=== PATIENT | male | born 1990 | race Asian ===

== ENCOUNTER 2016-10-13 04:03 | Emergency (ER) | payer MEDICAID ==
[~2016-10-13] VITALS: Ht 172.7 cm; Wt 91.6 kg
[2016-10-13 04:34] VITALS: BP 127/77
[2016-10-13] MEDS ORDERED: LORA1TAB37 PO (04:48)
[2016-10-13] MEDS ORDERED: FLUT9.9S NS (04:48)
[2016-10-13] MEDS ORDERED: DEXAMETHASONE SOD PHOS 4 MG/ML VIAL PO ONE (05:00)
--- NOTE | 2016-10-13 05:08 | ED.ADGEN ---
Past Medical History Past Medical History: No Pertinent History Past Surgical History: No Surgical History Alcohol Use: None Drug Use: None Adult General Chief Complaint Chief Complaint: EYE PROBLEMS HPI HPI Patient is a 25 year old man, with no significant past medical history, who presents to the emergency department with a complaint of itching around the eyes , clear rhinorrhea, with nasal congestion, that began last week. Patient moved from [place] to [place] at the end of August, he has experienced previously, with itchy around the eyes and the rhinorrhea, although he denies any history of allergies. Denies any specific triggers. No fevers, no chills, no weakness numbness or tingling. No shortness of breath, chest pain, throat or mouth symptoms. Review of Systems Review of Systems Constitutional: Denies fever or chills. [] Eyes: Denies change in visual acuity. [] "Itching" around the eyes, associated with rhinorrhea and mild sore throat. HENT: Denies nasal congestion or sore throat. [] Respiratory: Denies cough or shortness of breath. [] Cardiovascular: Denies chest pain or edema. [] GI: Denies abdominal pain, nausea, vomiting, bloody stools or diarrhea. [] : Denies dysuria. [] Musculoskeletal: Denies back pain or joint pain. [] Integument: Denies rash. [] Neurologic: Denies headache, focal weakness or sensory changes. [] Endocrine: Denies polyuria or polydipsia. [] Lymphatic: Denies swollen glands. [] Psychiatric: Denies depression or anxiety. [] Current Medications Current Medications Current Medications Medications (Trade) Dose Ordered Sig/Yary Start Time Stop Time Status Last Admin Dose Admin Dexamethasone Sodium Phosphate (Decadron) 6 mg 1X ONCE 10/13/16 05:00 10/13/16 05:00 DC 10/13/16 04:48 6 MG Allergies Allergies Allergies Coded Allergies Type Severity Reaction Last Updated Verified No Known Drug Allergies 10/13/16 No Physical Exam Physical Exam Constitutional: Well developed, well nourished, no acute distress, non-toxic appearance. [] HENT: Normocephalic, atraumatic, bilateral external ears normal, oropharynx moist, no oral exudates. Turbinates swelling bilaterally, clear rhinorrhea, postnasal drip. [] Eyes: PERRLA, EOMI, conjunctiva mildly injected, painless eye motion, patient with dried skin and mild erythema surrounding the upper and lower lids, no evidence of orbital or periorbital cellulitis, no discharge. [] Neck: Normal range of motion, no tenderness, supple, no stridor. [] Cardiovascular:Heart rate regular rhythm, no murmur, S1, S2, rubs or gallops. [] Lungs & Thorax: Bilateral breath sounds clear to auscultation, no wheezing, rhonchi, rales. No chest wall tenderness or crepitus. [] Abdomen: Bowel sounds normal, soft, no tenderness, no masses, no pulsatile masses. [] Skin: Warm, dry, no erythema, no rash. [] Back: No tenderness, no CVA tenderness. [] Extremities: No tenderness, no cyanosis, no clubbing, ROM intact, no edema. [] Neurologic: Alert and oriented X 3, normal motor function, normal sensory function, no focal deficits noted. [] Psychologic: Affect normal, judgement normal, mood normal. [] Current Patient Data Vital Signs Vital Signs Date Time Temp Pulse Resp B/P Pulse Ox O2 Delivery O2 Flow Rate FiO2 10/13/16 04:34 97.6 79 20 99 Room Air 97.6 EKG EKG Not indicated. [] Radiology/Procedures Radiology/Procedures Not indicated. [] Course & Med Decision Making Course & Med Decision Making Pertinent Labs and Imaging studies reviewed. (See chart for details) Patient well-appearing, aside from evidence of allergic conjunctivitis, and rhinitis, with eczema surrounding the eyes consistent with additional allergic symptoms. No evidence of airspace disease or throat or mucus membrane involvement. Patient has not been using any allergy type medications, received Decadron 6 mg orally in the emergency department without issue, will be initiated on loratadine 10 mg, one pill by mouth once daily to begin tonight, and Flonase to be used once daily. We did discuss concerning symptoms that prompt return, patient voiced understanding and agreement, discharged home in stable condition with plan as above, also given a list of available primary care providers. Dragon Disclaimer Dragon Disclaimer This electronic medical record was generated, in whole or in part, using a voice recognition dictation system. Departure Impression: Primary Impression: Allergic Disposition: HOME, SELF-CARE Condition: IMPROVED Scripts Loratadine/Pseudoephedrine (Loratadine-D 24HR Tablet)1 Each Tab.er.24h1 Each PO HS PRN ALLERGIES #20 Prov:ADILENE SAGASTUME DO 10/13/16 Fluticasone Propionate (Flonase Allergy Relief)9.9 Ml [place].susp2 Sprays NS DAILY PRN CONGESTION #1 BOTTLE Prov:ADILENE SAGASTUME DO 10/13/16 Problem Qualifiers Primary Impression: Allergic Encounter type: initial encounter Qualified Code: T78.40XA - Allergy, unspecified, initial encounter ADILENE SAGASTUME DO Oct 13, 2016 05:08
== END 2016-10-13 05:00 | disposition home or self-care (01) ==
LOC: ER 04:03
DX: T78.40XA Allergy, unspecified, initial encounter (principal); X58.XXXA Exposure to other specified factors, initial encounter
CPT/HCPCS: 99283; J1100

== ENCOUNTER 2020-05-25 20:53 | Emergency (ER) | payer SELFPAY ==
[~2020-05-25] VITALS: Ht 172.7 cm; Wt 83.0 kg
[~2020-05-25 20:53] MED LIST: FLUT9.9S NS; LORA1TAB37 PO
[2020-05-25 21:05] VITALS: BP 149/90
[2020-05-25] MEDS ORDERED: CYCL10TA2 PO (21:25)
[2020-05-25] MEDS ORDERED: TRAM-48 PO (21:25)
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
== END 2020-05-25 21:28 | disposition home or self-care (01) ==
LOC: ER 20:53
DX: M54.5 Low back pain (principal); G89.29 Other chronic pain
CPT/HCPCS: 99283